=== PATIENT | female | born 1945 | race Caucasian/White ===

== ENCOUNTER 2021-09-21 11:56 | Emergency (ER) | payer MEDICARE, OTHER ==
[2021-09-21 12:08] VITALS: BP 126/51; PULSE 64
[2021-09-21] MEDS ORDERED: Sodium Chloride 0.9% 10 ML Syringe FLUSH PRN (12:16)
--- NOTE | 2021-09-21 12:26 | EDM.PDOC ---
ED HPI GENERAL MEDICAL PROBLEM - General Chief Complaint: General Time Seen by Provider: 09/21/21 12:00 Source of Information: Reports: Patient, Family, Provider - History of Present Illness INITIAL COMMENTS - FREE TEXT/NARRATIVE: Cherie is a 75 y/o female who presents to the ER for dizziness and balance issues that she has been having for the last 1-2 weeks. She was seen at the clinic this AM by Dr Osman and it was felt that she had a mild left-sided facial droop and that in light of her sx, a stroke needed to be ruled out. She has been suffering from Sciatica and low back pain and has been started on Doxepin in the last 10 days that could be a compounding factor. She fell out of bed twice on Tuesday night. She denies any URI sx. Does take her meds as scheduled. Patient also tells SENIOR ADMINISTRATIVE SERVICES OFFICER that she has been having progressively more issues with SOB that is worse at night when she tried to lay down and she needs to sleep on 4 pillows. Has had COVID vaccinations + booster. - Related Data Allergies Allergy/AdvReac Type Severity Reaction Status Date / Time clindamycin Allergy Other Verified 09/21/21 12:12 fluconazole Allergy Cannot Verified 09/21/21 12:12 Remember hydrocodone Allergy Itching Verified 09/21/21 12:12 lisinopril Allergy Cough Verified 09/21/21 12:12 oxycodone Allergy Itching Verified 09/21/21 12:12 Penicillins Allergy Nausea and Verified 09/21/21 12:12 Vomiting Sulfa (Sulfonamide Allergy Nausea and Verified 09/21/21 12:12 Antibiotics) Vomiting Home Meds: Home Meds metFORMIN HCl [Metformin ER Osmotic] 1,000 mg PO BID 01/07/15 [History] Simvastatin 80 mg PO DAILY 03/07/15 [History] Doxepin [SINEquan] 50 mg PO BEDTIME 09/21/21 [History] Gabapentin [Neurontin] 600 mg PO BEDTIME 09/21/21 [History] Hydrochlorothiazide/Losartan [Hyzaar 50-12.5 MG] 1 tab PO DAILY 09/21/21 [History] Insulin Glargine,Hum.Rec.Anlog [Basaglar Kwikpen U-100] 45 unit SQ BEDTIME 09/21/21 [History] Insulin Lispro [HumaLOG] 5 unit SQ TIDMEALS 09/21/21 [History] LORazepam [Ativan] 2 mg PO DAILY PRN 09/21/21 [History] Meloxicam [Mobic] 7.5 mg PO BID 09/21/21 [History] Sulfamethoxazole/Trimethoprim [Bactrim Ds Tablet] 1 each PO BID #14 tablet 09/21/21 [Rx] rOPINIRole [Requip] 1 mg PO TID 09/21/21 [History] traZODone 50 mg PO BEDTIME 09/21/21 [History] Past Medical History Cardiovascular History: Reports: High Cholesterol, Hypertension Other Genitourinary History: ckd II Psychiatric History: Reports: Anxiety Endocrine/Metabolic History: Reports: Diabetes, Type II Oncologic (Cancer) History: Reports: Malignant Melanoma - Past Surgical History GI Surgical History: Reports: Colonoscopy Review of Systems - Review of Systems Review Of Systems: See Below Constitutional: Reports: Weakness Eyes: Reports: No Symptoms Ears: Reports: Dizziness Nose: Reports: No Symptoms Mouth/Throat: Reports: No Symptoms Respiratory: Reports: Shortness of Breath, Other (Nocturnal Dyspnes) Cardiovascular: Reports: No Symptoms GI/Abdominal: Reports: No Symptoms Genitourinary: Reports: No Symptoms Musculoskeletal: Reports: No Symptoms Skin: Reports: No Symptoms Neurological: Reports: Confusion, Dizziness, Difficulty Walking, Weakness Psychiatric: Reports: Confusion ED EXAM, GENERAL - Physical Exam Exam: See Below Exam Limited By: No Limitations General Appearance: Alert, WD/WN, No Apparent Distress (Elderly female, NAD. She is neatly dressed and sitting quietly on the cart.) Eye Exam: Bilateral Eye: PERRL Ears: Normal External Exam, Normal Canal, Hearing Grossly Normal, Normal TMs Nose: Normal Inspection, Normal Mucosa, No Blood Throat/Mouth: Normal Inspection, Normal Lips, Normal Teeth, Normal Oropharynx, Normal Voice Head: Atraumatic, Normocephalic Neck: Normal Inspection, Supple Respiratory/Chest: No Respiratory Distress, Lungs Clear, Chest Non-Tender Cardiovascular: Normal Peripheral Pulses, Regular Rate, Rhythm, No Murmur GI/Abdominal: Normal Bowel Sounds, Soft (Female) Exam: Deferred Rectal (Female) Exam: Deferred Extremities: Other (+tendernes in the left lower back region) Neurological: Alert, CN II-XII Intact, Normal Cognition, Normal Gait, Normal Reflexes, No Motor/Sensory Deficits, Other (NIHSS=0) Psychiatric: Normal Affect, Normal Mood Skin Exam: Warm, Dry, Intact, Normal Color, No Rash Lymphatic: No Adenopathy #1 Interpretation EKG Date: 09/21/21 Time: 12:29 Rhythm: NSR Rate (Beats/Min): 654 [place]: Normal P-Wave: Present QRS: Normal ST-T: Normal QT: Normal EKG Interpretation Comments: Sinus Rhythm Course - Vital Signs Text/Narrative:: 1200 The patient was seen by the SENIOR ADMINISTRATIVE SERVICES OFFICER. Labs, EKG, CXR,and CT were ordered. Did not appreciate the subtle left-sided facial droop as reported by her PCP. Will proceed with ruling out stroke or HI, electrolyte imbalance, medication causing sx, etc. 1400 Labs reviewed. Note CBC neg for infection, Hgb=9.6, Hct=28.6; CMP BUN=35, Nutritional Services Host=1.4, Troponin neg, Mg=2.3, JUG=191, CXR neg. UA SG=1.015, Yefwtno=900, Leuk Es Trace, EBC=5-10, Epis=trace. Will give her a liter of NS and plan to treat her with a course of Bactrim since she has recurrent UTIs. Head CT pending. 1515 CT neg, reviewed results with the patient and her family. Will treat with the abx until Urine cx returned. Still cannot exclude polypharmacy of sedating meds as cause of her dizziness. Doubt CVA. Will have her FU with PCP to reassess and review meds if she is not better in the next 24-48 hours. Written instructions were given and the patient left the ER in stable condition. Last Recorded V/S: Last Vital Signs Temp 36.6 C 09/21/21 11:57 Pulse 64 09/21/21 11:57 Resp 18 09/21/21 11:57 BP 126/51 L 09/21/21 11:57 Pulse Ox 98 09/21/21 11:57 - Orders/Labs/Meds Orders: Active Orders 24 hr Category Date Time Status CULTURE URINE [RM] Stat Lab 09/21/21 12:52 Received Sodium Chloride 0.9% [Saline Flush] Med 09/21/21 12:16 Active 10 ml FLUSH ASDIRECTED PRN Saline Lock Insert [OM.PC] Stat Oth 09/21/21 12:16 Ordered Medication Orders Sodium Chloride (Sodium Chloride 0.9% 10 Ml Syringe) 10 ml FLUSH ASDIRECTED PRN PRN Reason: Keep Vein Open Labs: Laboratory Tests 09/21/21 09/21/21 09/21/21 Range/Units 12:23 12:28 12:28 WBC 5.2 (4.0-10.0) x10^3/uL RBC 3.40 L (4.00-5.50) x10^6/uL Hgb 9.6 L (12.0-16.0) g/dL Hct 28.6 L (33.0-47.0) % MCV 84.1 (78.0-93.0) fL MCH 28.2 (26.0-32.0) pg MCHC 33.6 (32.0-36.0) g/dL RDW Coeff of Kathy 12.7 (10.0-15.0) % Plt Count 150 (130-400) x10^3/uL Immature Gran % (Auto) 0.20 (0.00-0.43) % Neut % (Auto) 70.7 (50.0-80.0) % Lymph % (Auto) 15.9 L (25.0-50.0) % Sebastian % (Auto) 8.4 (2.0-11.0) % Eos % (Auto) 4.4 H (0.0-4.0) % Baso % (Auto) 0.4 (0.2-1.2) % Neut # (Auto) 3.7 (1.8-7.7) x10^3/uL Lymph # (Auto) 0.8 L (1.0-4.8) x10^3/uL Sebastian # (Auto) 0.4 (0.0-0.8) x10^3/uL Eos # (Auto) 0.2 (0.0-0.5) x10^3/uL Baso # (Auto) 0.0 (0.0-0.2) x10^3/uL Immature Gran # (Auto) 0.01 (0.00-0.07) x10^3/uL PT 11.2 (9.9-12.5) SEC INR 1.0 L (2.0-3.5) Sodium (136-145) mmol/L Potassium (3.5-5.1) mmol/L Chloride (98-107) mmol/L Carbon Dioxide (21-32) mmol/L Anion Gap (5-15) mmol/L BUN (7-18) mg/dL Creatinine (0.55-1.02) mg/dL Est Cr Clr Drug Dosing Estimated GFR (MDRD) Glucose (70-99) mg/dL Lactic Acid (0.4-2.0) mmol/L Calcium (8.5-10.1) mg/dL Corrected Calcium (8.5-10.1) mg/dL Magnesium (1.8-2.4) mg/dL Total Bilirubin (0.2-1.0) mg/dL AST (15-37) U/L ALT (14-59) U/L Alkaline Phosphatase (46-116) U/L Troponin I High Sens (<=51) ng/L C-Reactive Protein (<=0.9) mg/dL NT-Pro-B Natriuret Pep (<=125) pg/mL Total Protein (6.4-8.2) g/dL Albumin (3.4-5.0) g/dL Globulin Albumin/Globulin Ratio TSH, Ultra Sensitive (0.358-3.74) uIU/mL Urine Color (YELLOW) Urine Appearance (CLEAR) Urine pH (5.0-8.0) Ur Specific [place] Urine Protein (NEGATIVE) mg/dL Urine Glucose (UA) (NEGATIVE) mg/dL Urine Ketones (NEGATIVE) mg/dL Urine Occult Blood (NEGATIVE) Urine Nitrite (NEGATIVE) Urine Bilirubin (NEGATIVE) Urine Urobilinogen (0.2) EU/dL Ur Leukocyte Esterase (NEGATIVE) Urine RBC (NOT SEEN) /HPF Urine WBC (NOT SEEN) /HPF Ur Squamous Epith Cells (NOT SEEN) /HPF Urine Bacteria (NOT SEEN) /HPF Urine Mucus (NOT SEEN) /LPF Urine Opiates Screen (NEGATIVE) Ur Buprenorphine Scrn (NEGATIVE) Ur Oxycodone Screen (NEGATIVE) Urine Methadone Screen (NEGATIVE) Ur Barbituates Screen (NEGATIVE) Ur Phencyclidine Scrn (NEGATIVE) Ur Amphetamines Screen (NEGATIVE) U Methamphetamines Scrn (NEGATIVE) Urine MDMA Screen (NEGATIVE) U Benzodiazepines Scrn (NEGATIVE) Urine Cocaine Screen (NEGATIVE) U Marijuana (THC) Screen (NEGATIVE) Ethyl Alcohol (0-3) mg/dL SARS CoV-2 RNA Rapid CUCO Negative (NEGATIVE) 09/21/21 09/21/21 09/21/21 Range/Units 12:28 12:28 12:52 WBC (4.0-10.0) x10^3/uL RBC (4.00-5.50) x10^6/uL Hgb (12.0-16.0) g/dL Hct (33.0-47.0) % MCV (78.0-93.0) fL MCH (26.0-32.0) pg MCHC (32.0-36.0) g/dL RDW Coeff of Kathy (10.0-15.0) % Plt Count (130-400) x10^3/uL Immature Gran % (Auto) (0.00-0.43) % Neut % (Auto) (50.0-80.0) % Lymph % (Auto) (25.0-50.0) % Sebastian % (Auto) (2.0-11.0) % Eos % (Auto) (0.0-4.0) % Baso % (Auto) (0.2-1.2) % Neut # (Auto) (1.8-7.7) x10^3/uL Lymph # (Auto) (1.0-4.8) x10^3/uL Sebastian # (Auto) (0.0-0.8) x10^3/uL Eos # (Auto) (0.0-0.5) x10^3/uL Baso # (Auto) (0.0-0.2) x10^3/uL Immature Gran # (Auto) (0.00-0.07) x10^3/uL PT (9.9-12.5) SEC INR (2.0-3.5) Sodium 139 (136-145) mmol/L Potassium 4.5 (3.5-5.1) mmol/L Chloride 100 (98-107) mmol/L Carbon Dioxide 29 (21-32) mmol/L Anion Gap 14.5 (5-15) mmol/L BUN 35 H (7-18) mg/dL Creatinine 1.4 H (0.55-1.02) mg/dL Est Cr Clr Drug Dosing TNP Estimated GFR (MDRD) 37 Glucose 252 H (70-99) mg/dL Lactic Acid 1.7 (0.4-2.0) mmol/L Calcium 9.0 (8.5-10.1) mg/dL Corrected Calcium 9.6 (8.5-10.1) mg/dL Magnesium 2.3 (1.8-2.4) mg/dL Total Bilirubin 0.5 (0.2-1.0) mg/dL AST 19 (15-37) U/L ALT 27 (14-59) U/L Alkaline Phosphatase 72 (46-116) U/L Troponin I High Sens 6 (<=51) ng/L C-Reactive Protein 2.0 H (<=0.9) mg/dL NT-Pro-B Natriuret Pep 104 (<=125) pg/mL Total Protein 6.8 (6.4-8.2) g/dL Albumin 3.3 L (3.4-5.0) g/dL Globulin 3.5 Albumin/Globulin Ratio 0.94 TSH, Ultra Sensitive 2.654 (0.358-3.74) uIU/mL Urine Color Yellow (YELLOW) Urine Appearance Clear (CLEAR) Urine pH 5.5 (5.0-8.0) Ur Specific [place] 1.015 Urine Protein Trace H (NEGATIVE) mg/dL Urine Glucose (UA) 250 H (NEGATIVE) mg/dL Urine Ketones Negative (NEGATIVE) mg/dL Urine Occult Blood Negative (NEGATIVE) Urine Nitrite Negative (NEGATIVE) Urine Bilirubin Negative (NEGATIVE) Urine Urobilinogen 0.2 (0.2) EU/dL Ur Leukocyte Esterase Trace H (NEGATIVE) Urine RBC 0-5 (NOT SEEN) /HPF Urine WBC 5-10 H (NOT SEEN) /HPF Ur Squamous Epith Cells Occasional H (NOT SEEN) /HPF Urine Bacteria Rare (NOT SEEN) /HPF Urine Mucus Rare H (NOT SEEN) /LPF Urine Opiates Screen (NEGATIVE) Ur Buprenorphine Scrn (NEGATIVE) Ur Oxycodone Screen (NEGATIVE) Urine Methadone Screen (NEGATIVE) Ur Barbituates Screen (NEGATIVE) Ur Phencyclidine Scrn (NEGATIVE) Ur Amphetamines Screen (NEGATIVE) U Methamphetamines Scrn (NEGATIVE) Urine MDMA Screen (NEGATIVE) U Benzodiazepines Scrn (NEGATIVE) Urine Cocaine Screen (NEGATIVE) U Marijuana (THC) Screen (NEGATIVE) Ethyl Alcohol < 3 (0-3) mg/dL SARS CoV-2 RNA Rapid CUCO (NEGATIVE) 09/21/21 Range/Units 12:52 WBC (4.0-10.0) x10^3/uL RBC (4.00-5.50) x10^6/uL Hgb (12.0-16.0) g/dL Hct (33.0-47.0) % MCV (78.0-93.0) fL MCH (26.0-32.0) pg MCHC (32.0-36.0) g/dL RDW Coeff of Kathy (10.0-15.0) % Plt Count (130-400) x10^3/uL Immature Gran % (Auto) (0.00-0.43) % Neut % (Auto) (50.0-80.0) % Lymph % (Auto) (25.0-50.0) % Sebastian % (Auto) (2.0-11.0) % Eos % (Auto) (0.0-4.0) % Baso % (Auto) (0.2-1.2) % Neut # (Auto) (1.8-7.7) x10^3/uL Lymph # (Auto) (1.0-4.8) x10^3/uL Sebastian # (Auto) (0.0-0.8) x10^3/uL Eos # (Auto) (0.0-0.5) x10^3/uL Baso # (Auto) (0.0-0.2) x10^3/uL Immature Gran # (Auto) (0.00-0.07) x10^3/uL PT (9.9-12.5) SEC INR (2.0-3.5) Sodium (136-145) mmol/L Potassium (3.5-5.1) mmol/L Chloride (98-107) mmol/L Carbon Dioxide (21-32) mmol/L Anion Gap (5-15) mmol/L BUN (7-18) mg/dL Creatinine (0.55-1.02) mg/dL Est Cr Clr Drug Dosing Estimated GFR (MDRD) Glucose (70-99) mg/dL Lactic Acid (0.4-2.0) mmol/L Calcium (8.5-10.1) mg/dL Corrected Calcium (8.5-10.1) mg/dL Magnesium (1.8-2.4) mg/dL Total Bilirubin (0.2-1.0) mg/dL AST (15-37) U/L ALT (14-59) U/L Alkaline Phosphatase (46-116) U/L Troponin I High Sens (<=51) ng/L C-Reactive Protein (<=0.9) mg/dL NT-Pro-B Natriuret Pep (<=125) pg/mL Total Protein (6.4-8.2) g/dL Albumin (3.4-5.0) g/dL Globulin Albumin/Globulin Ratio TSH, Ultra Sensitive (0.358-3.74) uIU/mL Urine Color (YELLOW) Urine Appearance (CLEAR) Urine pH (5.0-8.0) Ur Specific [place] Urine Protein (NEGATIVE) mg/dL Urine Glucose (UA) (NEGATIVE) mg/dL Urine Ketones (NEGATIVE) mg/dL Urine Occult Blood (NEGATIVE) Urine Nitrite (NEGATIVE) Urine Bilirubin (NEGATIVE) Urine Urobilinogen (0.2) EU/dL Ur Leukocyte Esterase (NEGATIVE) Urine RBC (NOT SEEN) /HPF Urine WBC (NOT SEEN) /HPF Ur Squamous Epith Cells (NOT SEEN) /HPF Urine Bacteria (NOT SEEN) /HPF Urine Mucus (NOT SEEN) /LPF Urine Opiates Screen Negative (NEGATIVE) Ur Buprenorphine Scrn Negative (NEGATIVE) Ur Oxycodone Screen Negative (NEGATIVE) Urine Methadone Screen Negative (NEGATIVE) Ur Barbituates Screen Negative (NEGATIVE) Ur Phencyclidine Scrn Negative (NEGATIVE) Ur Amphetamines Screen Negative (NEGATIVE) U Methamphetamines Scrn Negative (NEGATIVE) Urine MDMA Screen Negative (NEGATIVE) U Benzodiazepines Scrn Positive H (NEGATIVE) Urine Cocaine Screen Negative (NEGATIVE) U Marijuana (THC) Screen Negative (NEGATIVE) Ethyl Alcohol (0-3) mg/dL SARS CoV-2 RNA Rapid CUCO (NEGATIVE) Meds: Medications Generic Name Dose Route Start Last Admin Trade Name Freq PRN Reason Stop Dose Admin Sodium Chloride 10 ml 09/21/21 12:16 Sodium Chloride 0.9% 10 Ml Syringe FLUSH ASDIRECTED PRN Keep Vein Open Discontinued Medications Generic Name Dose Route Start Last Admin Trade Name Freq PRN Reason Stop Dose Admin Sodium Chloride 1,000 mls @ 999 mls/hr 09/21/21 14:00 09/21/21 14:15 Normal Saline IV 09/21/21 15:00 999 mls/hr ONETIME ONE Administration - Radiology Interpretation Free Text/Narrative:: XR Chest 1V=no acute findings (See final report) CT Head WO= Departure - Departure Time of Disposition: 15:12 Disposition: Home, Self-Care 01 Condition: Good Clinical Impression: Mild dehydration, Dizziness, Balance problem UTI (urinary tract infection) Qualifiers: Urinary tract infection type: site unspecified Hematuria presence: without hematuria Qualified Code(s): N39.0 - Urinary tract infection, site not specified - Discharge Information *PRESCRIPTION DRUG MONITORING PROGRAM REVIEWED*: No *COPY OF PRESCRIPTION DRUG MONITORING REPORT IN PATIENT CYNDY: No Prescriptions: Sulfamethoxazole/Trimethoprim [Bactrim Ds Tablet] 1 each PO BID #14 tablet Instructions: Rehydration, Adult, Urinary Tract Infection, Adult Referrals: Carlota Thomas DO [Primary Care Provider] - Forms: ED Department Discharge Additional Instructions: -Bactrim 1 tablet oral twice daily for urinary infection #14 (Rx) You are being treated for a UTI, Urine culture is pending and you will be notified if different meds are needed. -Drink plenty of fluids -Rest -Your Head CT was negative in the ER. If you are still having the dizziness and balance issues, you need to return to see Dr Thomas and address your medications list. It is noted that you are on several medications that can all be quite sedating and this may be contributing to your symptoms. -Return to the ER as needed Sepsis Event Note (ED) - Focused Exam Vital Signs: Vital Signs Temp Pulse Resp BP Pulse Ox 09/21/21 11:57 36.6 C 64 18 126/51 L 98 - Problem List & Annotations (1) Balance problem SNOMED Code(s): 182203185 Code(s): R26.89 - OTHER ABNORMALITIES OF GAIT AND MOBILITY Status: Acute Current Visit: Yes (2) Dizziness SNOMED Code(s): 207597775, 662180003 Code(s): R42 - DIZZINESS AND GIDDINESS Status: Acute Current Visit: Yes Annotation/Comment:: CT Head=negative. Labs positive for BUN=35 and Nutritional Services Host=1.4, mild dehydration as cause possible. Still consider Polypharmancy with mutiple sedating meds. Will have PCP address if she is not better. (3) Mild dehydration SNOMED Code(s): 9672677082936 Code(s): E86.0 - DEHYDRATION Status: Acute Current Visit: Yes Annotation/Comment:: IV fluids given in the ER. (4) UTI (urinary tract infection) SNOMED Code(s): 23263127 Code(s): N39.0 - URINARY TRACT INFECTION, SITE NOT SPECIFIED Status: Acute Current Visit: Yes Annotation/Comment:: Urine Cx pending, Treat with Bactrim due to hx of recurrent UTIs. Qualifiers: Urinary tract infection type: site unspecified Hematuria presence: without hematuria Qualified Code(s): N39.0 - Urinary tract infection, site not specified - Problem List Review Problem List Initiated/Reviewed/Updated: Yes - My Orders Last 24 Hours: My Active Orders 09/21/21 12:16 Sodium Chloride 0.9% [Saline Flush] 10 ml FLUSH ASDIRECTED PRN Saline Lock Insert [OM.PC] Stat 09/21/21 12:52 CULTURE URINE [RM] Stat - Assessment/Plan Last 24 Hours: My Active Orders 09/21/21 12:16 Sodium Chloride 0.9% [Saline Flush] 10 ml FLUSH ASDIRECTED PRN Saline Lock Insert [OM.PC] Stat 09/21/21 12:52 CULTURE URINE [RM] Stat Plan: See above
--- NOTE | 2021-09-21 12:54 | CR ---
[id number] RAD/RAD Chest PA or AP 1V EXAM: FRONTAL CHEST INDICATION: CONFUSION, MILD NOCTURNAL DYSPNEA. COMPARISON: None. DISCUSSION: Mild cardiomegaly without evidence of edema. Mild to moderate elevation right hemidiaphragm. No effusions. IMPRESSION: 1. No acute findings. Merlin Torres MD 09/21/21 [id number] Thank you for allowing us to participate in the care of your patient.
[2021-09-21 13:02] LABS: ANION GAP 14.5 mmol/L (5-15); CHLORIDE,CL 100 mmol/L (98-107); SODIUM,NA 139 mmol/L (136-145)
[2021-09-21 13:04] LABS: BUPRENORPHINE,URINE NEGATIVE (NEGATIVE); MARIJUANA,URINE NEGATIVE (NEGATIVE); METHYLENEDIOXYMETHAMP,UR NEGATIVE (NEGATIVE); PHENCYCLIDINE,URINE NEGATIVE (NEGATIVE)
[2021-09-21] MEDS ORDERED: Sodium Chloride 0.9% 1,000 ML IV ONE (14:00)
--- NOTE | 2021-09-21 14:38 | CT ---
[id number] CT/CT Head WO IV EXAM: NONCONTRAST HEAD CT INDICATION: Confusion and dizziness. COMPARISON: None. DISCUSSION: The ventricles and sulci are normal in size and configuration. The rocha and white matter are normal in attenuation. No mass effect or midline shift. No acute hemorrhage or extra-axial fluid collection. No acute territorial infarct is identified. A limited look at the orbits and paranasal sinuses is unremarkable. IMPRESSION: 1. Negative exam. Merlin Torres MD 09/21/21 0235 Thank you for allowing us to participate in the care of your patient.
== END 2021-09-21 15:23 | disposition home or self-care (01) ==
LOC: VM.ED 11:56
DX: E86.0 Dehydration (principal); R42 Dizziness and giddiness; N39.0 Urinary tract infection, site not specified; E78.00 Pure hypercholesterolemia, unspecified; I12.9 Hypertensive chronic kidney disease with stage 1 through stage 4 chronic kidney disease, or unspecified chronic kidney disease; N18.2 Chronic kidney disease, stage 2 (mild); E11.9 Type 2 diabetes mellitus without complications; Z79.84 Long term (current) use of oral hypoglycemic drugs; Z79.899 Other long term (current) drug therapy; Z88.0 Allergy status to penicillin; Z88.2 Allergy status to sulfonamides; Z88.1 Allergy status to other antibiotic agents; Z88.8 Allergy status to other drugs, medicaments and biological substances; Z20.822 Contact with and (suspected) exposure to COVID-19
CPT/HCPCS: 70450; 71045; 80053; 80305-QW; 80307; 81001; 83605; 83735; 83880; 84443; 84484; 85025; 85610; 86140; 87086; 93005; 93010; 99284; 99284-25; J7030; U0002